=== PATIENT | female | born 1985 | race Caucasian/White ===

== ENCOUNTER 2019-08-29 16:26 | Emergency (ER) | payer OTHER, MEDICAID, SELFPAY ==
[2019-08-29 16:36] VITALS: BP 162/82; PULSE 82; RESP 15; TEMP 36.8; O2SAT 99
--- NOTE | 2019-08-29 17:20 | ED.RECABL ---
HPI - Recheck/Abnormal Lab/Rx <RAJAN Stafford - Last Filed: 08/29/19 19:07> General Chief Complaint: Recheck/Abnormal Lab/Rx Stated Complaint: NEEDS MEDICATION Time Seen by Provider: 08/29/19 16:28 Source: patient Mode of arrival: Ambulatory Limitations: no limitations History of Present Illness HPI narrative: The patient is a 33-year-old female current smoker with history of depression and anxiety who presents with the chief complaint of needing refills. She states that she has been off of her meds for several days, has recently moved from [place]. She states that her psychiatrist sent her here for her refills. She presents requesting refills of fluoxetine, clonazepam, alprazolam, Subutex, gabapentin an Adderall. She denies any suicidal thoughts or ideations. She denies any homicidal thoughts or ideations. She states that she saw her primary care provider last week, with [facility] [place]. Related Data Home Medications Medication Instructions Recorded Confirmed dextroamphetamine-amphetamine 20 mg PO [id number] 08/29/19 Allergies Allergy/AdvReac Type Severity Reaction Status Date / Time No Known Drug Allergies Allergy Verified 08/29/19 16:36 Review of Systems <RAJAN Stafford - Last Filed: 08/29/19 19:07> Review of Systems Narrative: GENERAL: Denies chills, fatigue, malaise, fever, sweats. HEENT: Denies sinus pain, ear pain, sore throat, difficulty swallowing, dizziness. RESPIRATORY: Denies dyspnea, cough, wheezing, hemoptysis, sputum. CARDIOVASCULAR: Denies chest pain, palpitations, orthopnea, edema, GASTROINTESTINAL: Denies nausea, vomiting, abdominal pain, diarrhea, constipation, melena. : Denies dysuria, frequency, incontinence, hematuria, urinary retention. MUSCULOSKELETAL: denies weakness, joint pain, or bony pain SKIN: Denies rash, skin lesions, or other NEUROLOGIC: Denies weakness, headache, numbness, change in speech, confusion, seizures, incoordination. PSYCHIATRIC: See HPI 12 point review of systems is negative except for those stated above Patient History <RAJAN Stafford - Last Filed: 08/29/19 19:07> Medical History (Updated 08/29/19 @ 19:02 by RAJAN Stafford) Anxiety (Acute) Depression (Acute) Social History Smoking Status: Unknown if ever smoked alcohol intake frequency: holidays/special occasions only Substance Use Type: does not use Exam <RAJAN Stafford - Last Filed: 08/29/19 19:07> Narrative Exam Narrative: GENERAL: This is a well-nourished, well-developed patient, appears anxious HEAD: Atraumatic. Normocephalic. No temporal or scalp tenderness. EYES: Pupils equal round and reactive. Extraocular motions intact. No scleral icterus. No injection or drainage. ENT: Nose without bleeding, purulent drainage or septal hematoma. Throat without erythema, tonsillar hypertrophy or exudate. Uvula midline. Airway patent. NECK: Trachea midline. No JVD or lymphadenopathy. Supple, nontender, no meningeal signs. RESPIRATORY: No cough. No increased respiratory effort. No accessory muscle use EXTREMITIES: No clubbing, cyanosis, or edema. No joint tenderness, effusion, or edema noted. BACK: Nontender without deformity or crepitance. No flank tenderness. NEURO: AOx3. Clear speech. No gross cranial nerve deficit SKIN: No rash or erythema visible skin Initial Vital Signs Initial Vital Signs: Vital Signs Temperature 98.2 F 08/29/19 16:36 Pulse Rate 82 08/29/19 16:36 Respiratory Rate 15 08/29/19 16:36 Blood Pressure 162/82 H 08/29/19 16:36 Pulse Oximetry 99 08/29/19 16:36 <Dinesh Cook DO - Last Filed: 08/30/19 07:04> Initial Vital Signs Initial Vital Signs: Vital Signs Temperature 98.2 F 08/29/19 16:36 Pulse Rate 82 08/29/19 16:36 Respiratory Rate 15 08/29/19 16:36 Blood Pressure 162/82 H 08/29/19 16:36 Pulse Oximetry 99 08/29/19 16:36 Course <RAJAN Stafford - Last Filed: 08/29/19 19:07> Vital Signs Vital signs: Vital Signs - 8 hr 08/29/19 16:36 Temperature 98.2 F Pulse Rate 82 Respiratory Rate 15 Blood Pressure 162/82 H Pulse Oximetry 99 <Dinesh Cook DO - Last Filed: 08/30/19 07:04> Vital Signs Vital signs: Vital Signs - 8 hr 08/29/19 16:36 Temperature 98.2 F Pulse Rate 82 Respiratory Rate 15 Blood Pressure 162/82 H Pulse Oximetry 99 MDM - Recheck/Abnormal Lab/Rx <Megan BeltranHOAP-BC - Last Filed: 08/29/19 19:07> [facility] Narrative Medical decision making narrative: The patient is a 33-year-old female who presents requesting refills of multiple medications including Adderall and benzodiazepines. I discussed with her that we do not do medication refills in the emergency department, especially controlled medication refills. Dr Cook spoke with her primary care provider in [place], who stated that she has an appointment for 3:00 p.m. tomorrow to discuss her medication refills. I spoke with Dr. Medina after release of information was filled out the patient has never been seen there. I discussed that the patient needs to follow up with primary care provider for her refills, especially as we do not prescribe refills of these medications in the emergency department and do not prescribe Subutex. Patient states no questions and ambulates out of the emergency department prior to written discharge instructions. Discharge Plan Departure Patient Disposition: Home Clinical Impression: Encounter for medication refill Discharge Date/Time: 08/29/19 17:03 Prescriptions: No Action dextroamphetamine-amphetamine 20 mg tablet 20 mg PO [id number] RF: 0
== END 2019-08-29 17:03 | disposition home or self-care (01) ==
PROVIDERS: Emergency Provider Nurse Practitioner Family
DX: Z76.0 Encounter for issue of repeat prescription (principal)
CPT/HCPCS: 99281; 99282